=== PATIENT | female | born 1970 | race Caucasian/White ===

== ENCOUNTER 2023-04-18 11:31 | Day surgery (SDC) | payer OTHER ==
[~2023-04-18] VITALS: Ht 157.5 cm; Wt 75.7 kg
[2023-04-18] MEDS ORDERED: MIDAZOLAM 2 MG/2 ML VIAL ONE (12:28)
[2023-04-18] MEDS ORDERED: fentaNYL citrate 0.05 MG/ML VIAL ONE (12:28)
[2023-04-18] MEDS ORDERED: diphenhydrAMINE 50 MG/ML VIAL ONE (12:28)
[2023-04-18] MEDS ORDERED: LIDOCAINE 2% 100 MG/5 ML UJET TP ONE (12:29)
[2023-04-18] MEDS ORDERED: diphenhydrAMINE 50 MG/ML VIAL IVP ONE (13:25)
[2023-04-18] MEDS ORDERED: MIDAZOLAM 2 MG/2 ML VIAL IV ONE (13:25)
[2023-04-18] MEDS ORDERED: fentaNYL citrate 0.05 MG/ML VIAL IVP ONE (13:25)
== END 2023-04-18 13:48 | disposition home or self-care (01) ==
LOC: MDS 11:31 → MMU 11:32 → MDS 13:48
PROVIDERS: ATTEND Internal Medicine Gastroenterology
DX: Z12.11 Encounter for screening for malignant neoplasm of colon (principal); K63.5 Polyp of colon
CPT/HCPCS: 45385; 88305; J1200; J2250; J3010